=== PATIENT | female | born 2000 | race African-American/Black ===

== ENCOUNTER 2023-08-03 08:10 | Emergency (ER) | payer OTHER, SELFPAY ==
[2023-08-03 08:25] VITALS: BP 135/101; PULSE 97; RESP 16; TEMP 37.1; O2SAT 100
--- NOTE | 2023-08-03 08:30 | ED.SKABFB ---
HPI - Skin/Abscess/Foreign Bdy General Chief complaint: Skin/Abscess/Foreign Body Stated complaint: Boil Time Seen by Provider: 08/03/23 08:30 Source: patient, RN notes reviewed and old records reviewed Mode of arrival: ambulatory Limitations: no limitations History of Present Illness HPI narrative: 23 year old female who presents to [facility] care with complaints of abscess to the right perineum area for one week duration with increase in pain for the past 2 days. Patient reports that she has had similar abscess in same area before and has had to have it opened to drain and another time treated with just antibiotics.Patient has noted 3cm round firm tissue noted to right perineum area shiny red in color tender with no acute warmth. Patient has cleansed with peroxide and applied tea tree oil to area.Patient reports no known fevers, chills, or sweats. MD complaint: abscess/boil Onset (ago): week(s) (1) Severity: severe Severity scale (1-10): 10 Quality: sharp Treatments prior to arrival: other (cleansed with peroxide and applied tea tree oil) Related Data Home Medications Medication Instructions Recorded Confirmed norethindrone 1 mg-ethinyl 1 tablet PO DAILY 08/03/23 08/03/23 estradiol 20 mcg (24)-iron 75 mg (4) tablet (Melody 24 Fe) valacyclovir 1 gram tablet 1,000 mg PO DAILY 08/03/23 08/03/23 Allergies Allergy/AdvReac Type Severity Reaction Status Date / Time No Known Allergies Allergy Verified 08/03/23 08:49 Review of Systems Review of Systems: CONSTITUTIONAL: Denies fever, chills, or sweats. CARDIOVASCULAR: Denies chest pain, palpitations, or edema. RESPIRATORY: Denies cough or dyspnea. GASTROINTESTINAL: Denies abdominal pain, nausea, vomiting SKIN: Reports redness and swelling. Denies purulent drainage, tenderness right perineum inner groin region MUSCULOSKELETAL: Denies myalgia. NEUROLOGIC: Denies headache, numbness All systems reviewed & are unremarkable except as noted in HPI and below PMFSH Past Medical History Medical History (Updated 08/03/23 @ 09:08 by Bibi Tapia NP) Herpes genitalia Normal vaginal delivery 3 months ago Surgical History Surgical History (Updated 08/03/23 @ 09:07 by Bibi Tapia NP) History of dilatation and curettage Social History Social History (Updated 08/03/23 @ 09:07 by Bibi Tapia NP) Smoking status: Never smoker Alcohol intake: current Alcohol use details: social Substance use type: does not use Living arrangements: with family Gender identity (if verbalized by the patient): Female Comments At time of signature, agree with nursing past medical, surgical, social and family history. There is no relevant family history pertinent to the presenting complaint Exam Narrative: GENERAL: Well-appearing, well-nourished, and in no acute distress. HEAD: Normocephalic, atraumatic. EYES: PERRLA and EOMI. ENT: Nares clear, no rhinorrhea or epistaxis. Mucous membranes moist.TM's normal, throat pink with no swelling NECK: Supple. no lymphadenopathy CHEST: Clear to auscultation. No respiratory distress. HEART: Regular rate and rhythm. No murmur heard. Normal peripheral pulses. ABDOMEN: Soft, nontender, nondistended, normal active bowel sounds. EXTREMITIES: Normal range of motion. No edema. SKIN: Warm, dry. Erythema, induration, tenderness, no warmth, tissue red and shiny with no pustule formation, painful to palpation NEURO: No focal deficits. Alert and oriented x3. Course Course Emergency Course: Patient is aware of diagnosis, understands and agrees to treatment plan. Anticipatory guidance given. Patient agrees to follow-up as directed and is aware of reasons to seek care at the emergency department. Portions of this record may have been created with voice recognition software Level of Care: Express Care Visit Vital Signs Vital signs: Vital Signs Temperature 37.1 C 08/03/23 08:25 Pulse Rate 97 08/03/23 08:25 Re
== END 2023-08-03 09:01 | disposition home or self-care (01) ==
PROVIDERS: Emergency Provider Registered Nurse
DX: L02.215 Cutaneous abscess of perineum (principal)
CPT/HCPCS: 10060; 99213; G0463